=== PATIENT | female | born 1995 | race Caucasian/White ===

== ENCOUNTER 2019-01-15 18:10 | Emergency (ER) | payer OTHER ==
[~2019-01-15] VITALS: Ht 147.3 cm; Wt 57.2 kg
[2019-01-15 19:19] VITALS: Ht 147.3 cm; Wt 57.2 kg
[2019-01-15 19:49] VITALS: BP 123/78
== END 2019-01-15 19:49 | disposition home or self-care (01) ==
LOC: ED 18:10
DX: J18.9 Pneumonia, unspecified organism (principal); E11.9 Type 2 diabetes mellitus without complications; Z88.0 Allergy status to penicillin; G56.00 Carpal tunnel syndrome, unspecified upper limb